=== PATIENT | female | born 1950 | race Caucasian/White ===

== ENCOUNTER 2019-06-30 05:39 | Day surgery (SDC) | payer MEDICARE ==
[~2019-06-30 05:39] MED LIST: Buffered Lidocaine 1% SYRIN* 1 ML/SYRINGE INTRADERM ONE
[2019-06-30] MEDS ORDERED: Lactated Ringers 1000 ML Bag* 1,000 ML IV SCH (06:00)
[2019-06-30] MEDS ORDERED: Sodium Citrate/Citric Acid* 15 ML UDC PO ONE (06:00)
[2019-06-30] MEDS ORDERED: Sodium Citrate/Citric Acid* 15 ML UDC ONE (06:22)
[2019-06-30] MEDS ORDERED: ceFAZolin 2 GM in NS PREMIX(*) 2 GM/100 ML BAG IVPB ONE (06:22)
[2019-06-30] MEDS ORDERED: Bupivacaine 0.5%* 50 ML MDV VIAL ONE (07:09)
[2019-06-30] MEDS ORDERED: Lidocaine 2% PF* 10 ML AMP ONE (07:10)
[2019-06-30] MEDS ORDERED: fentaNYL* 50 MCG/ML 2 ML VIAL (100 MCG VIAL) ONE (07:17)
[2019-06-30] MEDS ORDERED: Midazolam* 1 MG/ML 5 ML VIAL (5 MG) ONE (07:18)
[2019-06-30] MEDS ORDERED: Naloxone* 0.4 MG/ML 1 ML VIAL IV PRN (07:27)
[2019-06-30] MEDS ORDERED: Propofol* 10 MG/ML 20 ML BTL ONE (07:47)
[2019-06-30] MEDS ORDERED: Lidocaine 2% PF * 5 ML VIAL ONE (07:47)
[2019-06-30 09:19] VITALS: BP 121/63
--- NOTE | 2019-06-30 15:52 | OP ---
DATE OF OPERATION: 06/30/19 - [facility] DATE OF : 46 SURGEON: Joe Joe MD LEADING FIREFIGHTER: Nic Kaye PA-C PRE-OP DIAGNOSIS: Valgus rotational deformity, left great interphalangeal joint. POST-OP DIAGNOSIS: Valgus rotational deformity, left great interphalangeal joint. OPERATIVE PROCEDURE: Osteotomy with IP fusion, left great toe. DESCRIPTION OF PROCEDURE: The patient was taken to the operating room where a transverse incision was made over the left IP joint. We resected the condyles of the interphalangeal joint to create some varus and then derotate this while 2 paired cannulated screws were placed intramedullary in the phalanx to the proximal phalanx. Good bone contact was obtained. We then trimmed some skin edges, closing dorsally with Monocryl and nylon and nylon for the skin at the end of the toe. X- rays were taken intraoperatively. [id number] #: [id number] [place]
== END 2019-06-30 09:50 | disposition home or self-care (01) ==
LOC: OR 05:39
PROVIDERS: ATTEND Orthopaedic Surgery
DX: M20.12 Hallux valgus (acquired), left foot (principal); I10 Essential (primary) hypertension
CPT/HCPCS: 76000; A9270-GY; C1713; J0690; J2001; J2250; J2704; J3010; J3490